=== PATIENT | female | born 1935 | race Caucasian/White ===

== ENCOUNTER 2022-08-22 10:11 | Outpatient (NON) | payer OTHER, SELFPAY ==
[2022-08-22 11:28] LABS: Alanine Aminotransferase 17 U/L (14-59); Albumin Level 3.2 g/dL (3.4-5.0); Alkaline Phosphatase 110 U/L (46-116); Anion Gap 12 mmol/L (8-16); Aspartate Amino Transferase 16 U/L (15-37); Bilirubin,Total 0.9 mg/dL (0.00-1.00); Blood Urea Nitrogen 18 mg/dL (7-18); Carbon Dioxide 26 mmol/L (21-32); Chloride 104 mmol/L (98-108); Cholesterol 161 mg/dL (0-200); Estimated Glomerular Filt Rate > 60; Glucose 82 mg/dL (70-99); HDL Direct 70 mg/dL (40-60); LDL Cholesterol Calculated 77 mg/dL (<130); Osmolality Calculated 294 mOsm/kg (285-295); Potassium 4.6 mmol/L (3.5-5.1); Sodium 142 mmol/L (136-145); Total Protein 6.9 g/dL (6.4-8.2); Triglycerides 71 mg/dL (0-150)
[2022-08-27 14:04] LABS: Vitamin D 25 Hydroxy 46 ng/mL (30-100)
== END 2022-08-22 10:12 | disposition home or self-care (01) ==
LOC: CHSLAB 10:14
PROVIDERS: Visit Provider Physician Assistant
DX: M81.0 Age-related osteoporosis without current pathological fracture (principal); E78.5 Hyperlipidemia, unspecified; R73.09 Other abnormal glucose
CPT/HCPCS: 80053; 80061; 82306; 83036

== ENCOUNTER 2022-09-20 01:37 | Emergency (ER) | payer OTHER, SELFPAY ==
--- NOTE | ~2022-09-20 | CT_ITS ---
Non-contrast CT scan of the Abdomen and Pelvis Clinical indication: Hematuria Technique: 2.5 mm axial scans were obtained through the abdomen and pelvis without intravenous or or al contrast. Dose reduction technique was used on this scan by utilizing automated exposure control a nd iterative reconstruction technique. The dose-length product (DLP) was 673.32 mGy-cm. Findings: Images through the lung bases reveal mild bibasilar pulmonary scarring or atelectatic murillo ge. There is no evidence of renal or ureteral calculi. The kidneys and the ureters are nondilated. The liver, spleen, pancreas, gallbladder, and adrenals appear normal. There are mild atherosclerotic calcifications of the aorta. There is no evidence of bowel obstruction. Normal appendix. Images through the pelvis were performed. There is no evidence of ascites or lymphadenopathy. There i s a 4.0 x 3.2 cm mildly hyperdense mass predominantly intraluminal arising from the posterior, right urinary bladder. No adnexal mass evident. Patient appears to be post hysterectomy. No ascites. Impression: 4.0 x 3.2 cm urinary bladder mass in the posterior, right side. This is suspicious for bladder carcin madie until proven otherwise. Reviewed, dictated and finalized at [facility]. Impression: 4.0 x 3.2 cm urinary bladder mass in the posterior, right side. This is suspici ous for bladder carcinoma until proven otherwise.
[2022-09-20 01:40] VITALS: BP 115/64; PULSE 75; RESP 20; TEMP 36.7; O2SAT 94
--- NOTE | 2022-09-20 01:58 | PC.NURSE ---
Pt taken to restroom for urine sample. Pt voided approximately 200 ml of urine with gustavo blood present. No clots noted. Urine obtained and sent to lab
[2022-09-20 02:05] LABS: Appearance Urine Clear (Clear); Bilirubin Urine Negative (Negative); Blood Urine 3+ (Negative); Color Urine Red (Yellow); Glucose Urine UA Negative (Negative); Ketones Urine Negative (Negative); Leukocyte Esterase Ur Trace LEU/UL (Negative); Nitrate Urine Negative (Negative); Protein Urine 3+ (Negative); Urobilinogen Urine 0.2 mg/dL (0.2-1.0); pH Urine 6.5 (5.0-8.0)
[2022-09-20 02:08] LABS: Add Urine Microscopic? YES; Bacteria Urine Trace /hpf; RBC Urine >75 /hpf (0-2); Squamous Epithelial Cell Urine None seen /hpf (Few)
[2022-09-20 03:03] VITALS: BP 116/62; PULSE 74; RESP 18; O2SAT 92
--- NOTE | 2022-09-20 03:49 | ED.GENADULT ---
HPI - General Adult General Chief complaint: Urogenital-Female Stated complaint: Urogenital History of Present Illness HPI narrative: 87yo woman half-way resident presents for new appearance of blood in the urine. No fevers, chills, pain, or urinary retention. Related Data Home Medications Medication Instructions Recorded Confirmed Centrum See Rx Instructions .Route .COMPLEX 09/20/22 09/20/22 Vasotec 5 mg PO DAILY 09/20/22 09/20/22 Vitamin D3 50 mcg PO DAILY 09/20/22 09/20/22 aspirin 81 mg PO DAILY 09/20/22 09/20/22 atorvastatin 40 mg PO DAILY 09/20/22 09/20/22 ergocalciferol (vitamin D2) 1.25 mg PO WEEKLY 09/20/22 09/20/22 escitalopram oxalate 10 mg tablet 10 mg PO DAILY 09/20/22 09/20/22 Allergies Allergy/AdvReac Type Severity Reaction Status Date / Time No Known Allergies Allergy Verified 09/20/22 01:43 Review of Systems Review of Systems: All systems reviewed & are unremarkable except as noted in HPI and below ENT: Denies dysphagia Cardiovascular: Cardiovascular: Denies chest pain Respiratory: Respiratory: Denies dyspnea Exam Const: General: healthy appearing and no acute distress Nutritional Appearance: well nourished Eyes: Conjunctivae: conjunctivae normal Resp: Effort & Inspection: normal respiratory effort and not labored Auscultation: clear to auscultation bilaterally Cardio: Rate: regular rate Rhythm: regular rhythm GI: Inspection: non-distended GI Palp: Yes Soft to palpation and No Tenderness to palpation present (GI) Skin: General skin exam: normal color, no jaundice and no pallor Neuro: General: patient oriented x3 and moves all extremities Course Vital Signs Vital signs: Vital Signs Temperature 36.7 C 09/20/22 01:40 Pulse Rate 75 09/20/22 01:40 Respiratory Rate 20 09/20/22 01:40 Blood Pressure 115/64 09/20/22 01:40 Pulse Oximetry 94 09/20/22 01:40 Oxygen Delivery Room Air 09/20/22 01:40 Temperature 36.7 C 09/20/22 01:40 Pulse Rate 51 L 09/20/22 04:04 Respiratory Rate 18 09/20/22 04:04 Blood Pressure 118/86 09/20/22 04:04 Pulse Oximetry 93 09/20/22 04:04 Oxygen Delivery Room Air 09/20/22 03:03 Medical Decision Making MDM Narrative Medical decision making narrative: gross hematuria DDx cystitis, kidney stone, bladder mass/malignancy. UA and CT to evaluate. Vital Signs Vital Signs: Vital Signs Temperature 36.7 C 09/20/22 01:40 Pulse Rate 75 09/20/22 01:40 Respiratory Rate 20 09/20/22 01:40 Blood Pressure 115/64 09/20/22 01:40 Pulse Oximetry 94 09/20/22 01:40 Oxygen Delivery Room Air 09/20/22 01:40 Temperature 36.7 C 09/20/22 01:40 Pulse Rate 51 L 09/20/22 04:04 Respiratory Rate 18 09/20/22 04:04 Blood Pressure 118/86 09/20/22 04:04 Pulse Oximetry 93 09/20/22 04:04 Oxygen Delivery Room Air 09/20/22 03:03 Lab Data Labs: Lab Results 09/20/22 Range/Units 01:57 Urine Color Red A (Yellow) Urine Appearance Clear (Clear) Urine pH 6.5 (5.0-8.0) Ur Specific [place] 1.020 (1.010-1.020) Urine Protein 3+ H (Negative) Urine Glucose (UA) Negative (Negative) Urine Ketones Negative (Negative) Ur Blood (Man) 3+ H (Negative) Urine Nitrate Negative (Negative) Urine Bilirubin Negative (Negative) Urine Urobilinogen 0.2 (0.2-1.0) mg/dL Leukocyte Esterase Rfl Trace H (Negative) ALEE/UL Urine RBC >75 H (0-2) /hpf Urine WBC 4-6 H (0-3) /hpf Ur Squamous Epith Cells None seen (Few) /hpf Urine Bacteria Trace (None) /hpf Discharge Plan Discharge Clinical Impression: Mass of urinary bladder, Gross hematuria Patient Disposition: Home, Self-Care Condition: Stable Additional Instructions: Your CT shows a mass in the bladder. This mass is most likely a cancer and the source of your bleeding. To find out for certain, you will need to be evaluated by a Urologist who can do further testing and a biopsy
[2022-09-20 04:04] VITALS: BP 118/86; PULSE 51; RESP 18; O2SAT 93
== END 2022-09-20 04:18 | disposition home or self-care (01) ==
PROVIDERS: Emergency Provider Emergency Medicine; PCP Internal Medicine
DX: N32.89 Other specified disorders of bladder (principal); R31.0 Gross hematuria; Z79.82 Long term (current) use of aspirin
CPT/HCPCS: 74176; 81001; 99284

== ENCOUNTER 2022-10-17 11:24 | Outpatient (CLI) | payer OTHER, SELFPAY ==
--- NOTE | ~2022-10-17 | XR_ITS ---
EXAMINATION: XR chest 2V DATE: 10/17/2022 12:04 INDICATION: Hypertension. Chronic obstructive pulmonary disease. TECHNIQUE: Frontal and lateral views of the chest were obtained. COMPARISON: Chest 2 views 06/20/2022, CT abdomen and pelvis 09/20/2022 FINDINGS: There is mild atelectasis versus scarring in left lower lung zone. No pleural effusion or p neumothorax. The heart size is normal. There is mild chronic anterior wedging of a midthoracic verteb ral body. IMPRESSION: 1. Mild atelectasis versus scarring in left lower lung zone. Reviewed, dictated and finalized at location A.
[2022-10-17 11:54] LABS: Basophils Absolute Auto 0.04 K/mm3 (0.00-0.10); Basophils Percent Auto 0.4 % (0.0-1.0); Eosinophils Absolute Auto 0.04 K/mm3 (0.02-0.50); Eosinophils Percent Auto 0.4 % (1.0-6.0); Hematocrit 37.8 % (35.0-42.0); Hemoglobin 11.7 g/dL (11.7-13.8); Immature Granulocyte Absolute 0.04 K/mm3 (0.00-0.00); Immature Granulocyte Percent A 0.4 % (0.0-0.0); Lymphocytes Absolute Auto 2.14 K/mm3 (1.10-4.50); Lymphocytes Percent Auto 21.6 % (18.0-42.0); Mean Corpuscular Hemoglobin 28.3 pg (27.0-31.0); Mean Corpuscular Volume 91.5 fL (78.0-102.0); Mean Platelet Volume 9.6 fl (9.2-11.8); Monocytes Absolute Auto 1.16 K/mm3 (0.10-0.90); Monocytes Percent Auto 11.7 % (2.0-11.0); Neutrophils Absolute Auto 6.5 K/mm3 (1.7-7.2); Neutrophils Percent Auto 65.5 % (50.0-70.0); Platelet Count Result 284 K/mm3 (150-420); Red Blood Count 4.13 M/mm3 (4.20-5.40); Red Cell Distribution Width 14.6 % (11.6-14.4); White Blood Count 9.9 K/mm3 (4.8-10.8)
[2022-10-17 11:56] LABS: Bilirubin Urine Negative (Negative); Blood Urine 3+ (Negative); Color Urine Light Yellow (Yellow); Glucose Urine UA Negative (Negative); Ketones Urine Negative (Negative); Leukocyte Esterase Ur 2+ LEU/UL (Negative); Nitrate Urine Negative (Negative); Protein Urine Trace (Negative); Urobilinogen Urine 0.2 mg/dL (0.2-1.0)
[2022-10-17 12:13] LABS: Add Urine Microscopic? YES; Appearance Urine Cloudy (Clear); WBC Urine 16-20 /hpf (0-3)
[2022-10-17 12:14] LABS: Bacteria Urine 2+ /hpf; Squamous Epithelial Cell Urine Few /hpf (Few)
[2022-10-17 12:52] LABS: Albumin Level 3.2 g/dL (3.4-5.0); Alkaline Phosphatase 105 U/L (46-116); Anion Gap 9 mmol/L (8-16); Bilirubin,Total 0.7 mg/dL (0.00-1.00); Blood Urea Nitrogen 22 mg/dL (7-18); Calcium 9.1 mg/dL (8.5-10.1); Carbon Dioxide 29 mmol/L (21-32); Chloride 103 mmol/L (98-108); Estimated Glomerular Filt Rate 56; Glucose 84 mg/dL (70-99); Osmolality Calculated 294 mOsm/kg (285-295); Potassium 4.1 mmol/L (3.5-5.1); Sodium 141 mmol/L (136-145); Total Protein 7.2 g/dL (6.4-8.2)
[2022-10-17 13:11] LABS: Alanine Aminotransferase 9 U/L (14-59); Aspartate Amino Transferase 10 U/L (15-37)
== END 2022-10-17 11:25 | disposition home or self-care (01) ==
PROVIDERS: PCP Internal Medicine; Visit Provider Internal Medicine
DX: Z01.818 Encounter for other preprocedural examination (principal); I10 Essential (primary) hypertension; J44.9 Chronic obstructive pulmonary disease, unspecified; R82.90 Unspecified abnormal findings in urine
CPT/HCPCS: 36415; 71046; 80053; 81001; 85025; 87086; 87088

== ENCOUNTER 2022-12-25 10:00 | Observation (INO) | payer OTHER, SELFPAY ==
[2022-12-25] VITALS (13 sets, daily range): BP systolic 128–144; BP diastolic 62–85; PULSE 67–92; RESP 16–18; TEMP 36.2–36.7; O2SAT 73–98; BMI 28.4
--- NOTE | ~2022-12-25 | XR_ITS ---
XR thoracic spine 3V 12/25/2022 11:23 Indication: Status post fall. Back pain. Procedure: 4 views thoracic spine Comparison: No prior studies for comparison. Findings: There is scoliosis. Osteopenia. Moderate thoracic spondylosis. No acute fracture or traumat ic malalignment. Mild wedge shaped appearance to T7 and T8 which appears chronic. Marginal osteophyte s. No paraspinal soft tissue abnormality. Central venous catheter tip in the SVC. Impression: 1: No acute abnormality of the thoracic spine. 2: Moderate thoracic spondylosis with scoliosis. Reviewed, dictated and finalized at location A. Impression: 1: No acute abnormality of the thoracic spine. 2: Moderate thoracic spondylosis with scoliosis.
--- NOTE | ~2022-12-25 | XR_ITS ---
XR forearm LT 2V, XR wrist LT w scaphoid 12/25/2022 11:24 (accession [id number]), 12/25/2022 11:23 (accession [id number]) Indication: Left arm pain after fall Procedure: 2 views left forearm and 5 views left wrist including scaphoid view Comparison: No prior studies for comparison. Findings: Osteopenia. Healed fifth metacarpal neck fracture. 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 No acute fracture or traumatic malalignment. Impression: 1: No acute fracture. Reviewed, dictated and finalized at location A. Impression: 1: No acute fracture. Impression: 1: No acute fracture.
--- NOTE | ~2022-12-25 | XR_ITS ---
XR lumbar spine 2-3V 12/25/2022 11:22 Indication: Back pain Procedure: Previews lumbar spine Comparison: No prior studies for comparison. Findings: There is scoliosis of the thoracic and lumbar spine. There is disc narrowing at all lumbar levels. There is degenerative retrolisthesis at L2-3 and L3-4. There is multilevel facet hypertrophy. No fracture or traumatic malalignment. Pedicles intact. Sacral foramen are symmetric. Impression: 1: No acute fracture. 2: Severe lumbar spondylosis with scoliosis. Reviewed, dictated and finalized at location A. Impression: 1: No acute fracture. 2: Severe lumbar spondylosis with scoliosis.
--- NOTE | 2022-12-25 10:27 | ECG_ITS ---
Measurements Intervals Natalia Rate: 84 P: 49 IL: 147 QRS: 7 QRSD: 78 T: 35 QT: 361 QTc: 428 Interpretive Statements SINUS RHYTHM WITH OCCASIONAL SUPRAVENTRICULAR PREMATURE COMPLEXES LOW QRS VOLTAGE OTHERWISE WITHIN NORMAL LIMITS NO PREVIOUS ECG AVAILABLE FOR COMPARISON Electronically Signed On 12-26-2022 7:11:21 CDT by Roberto Humphries M.D.
--- NOTE | 2022-12-25 10:29 | ED.GENADULT ---
HPI - General Adult General Chief complaint: Back Pain/Injury Stated complaint: fall; back pain History of Present Illness HPI narrative: Nicky is an 87F with a PMH of bladder cancer, HLD, HTN that presented to the ED with back pain after a fall. She was leaning over a few hours ago when she stood up, became lightheaded and fell back. She hit her left wrist, elbow and mid back and now has pain in her mid back. She did not hit her head or neck at all and did not lose consciousness. No numbness, tingling, weakness/paralysis in the lower extremities or loss of bowel/bladder control. Related Data Home Medications Medication Instructions Recorded Confirmed Centrum See Rx Instructions .Route .COMPLEX 09/20/22 12/25/22 Vasotec 5 mg PO DAILY 09/20/22 12/25/22 Vitamin D3 50 mcg PO DAILY 09/20/22 12/25/22 aspirin 81 mg PO DAILY 09/20/22 12/25/22 atorvastatin 40 mg PO DAILY 09/20/22 12/25/22 ergocalciferol (vitamin D2) 1.25 mg PO WEEKLY 09/20/22 12/25/22 escitalopram oxalate 10 mg tablet 10 mg PO DAILY 09/20/22 12/25/22 Allergies Allergy/AdvReac Type Severity Reaction Status Date / Time No Known Allergies Allergy Verified 09/20/22 01:43 Review of Systems Review of Systems: All systems reviewed & are unremarkable except as noted in HPI and below PMFSH Past Medical History Medical History (Updated 12/25/22 @ 16:05 by Nena Roche APRN) Anemia Ankle fracture, left Bladder cancer Fixation hardware in foot HLD (hyperlipidemia) Osteoporosis Surgical History Surgical History H/O: hysterectomy Social History Social History (Updated 12/25/22 @ 15:51 by Nena Roche APRN) Social History: Lives at the [facility] in [place]. She reports that she started smoking after her Divorce. She says that she didn't smoke a lot, less than 1/2 ppd and she did not inhale. Smoking packs per day: 0.5 Smoking cigarettes per day: 10.0 Years smoked: 5 Smoking pack-years: 2.50 Smoking status: Former smoker Tobacco type: cigarettes Alcohol intake: former Substance use: never Lack of Transportation: YES Lack of Food: Never True Current Housing: I Have Housing Concerned About Future Housing: No Difficulty Paying Gas/Electric Bills: No Difficulty Paying for Meds: No Currently Unemployed: No Living arrangements: assisted living Additional living arrangements comments: Lives at the [facility]. Her son, Parvez Coker is her emergency contact. Occupation/Education: retired Gender identity (if verbalized by the patient): Female Agree to blood products: Yes Exam Const: General: healthy appearing and no acute distress Nutritional Appearance: well nourished Orientation/consciousness: patient oriented x3 Limitations: no limitations HENMT: Head: normal to inspection Ears: external ears normal Face/Nose/Sinus: Normal external nose present Eyes: Conjunctivae: conjunctivae normal Pupils: Equal, round and reactive pupils present EOM: EOMs intact bilaterally Neck: Neck: normal visual inspection Chest: Chest palpation & inspection: normal inspection of the chest Resp: Effort & Inspection: normal respiratory effort Auscultation: clear to auscultation bilaterally Cardio: Rate: regular rate Rhythm: regular rhythm GI: Inspection: non-distended GI Palp: Yes Soft to palpation, No Tenderness to palpation present (GI) and No Guarding due to palpation present (GI) : General: Yes bladder normal to palpation Back/Spine/Pelvis: Back: no CVA tenderness Skin: General skin exam: normal color Rashes: no rashes Neuro: General: patient oriented x3 and moves all extremities Cranial nerves: Yes Nystagmus not present Speech: normal speech Extrem: Other: Bruising on lateral left upper extremity, just proximal to the wrist Psych: Mental Status: mental status grossly normal Course Course Emergency Course: Ordered labs, CXR and EKG EKG
[2022-12-25 11:38] LABS: Basophils Absolute Auto 0.07 K/mm3 (0.00-0.10); Basophils Percent Auto 0.5 % (0.0-1.0); Eosinophils Absolute Auto 0.01 K/mm3 (0.02-0.50); Eosinophils Percent Auto 0.1 % (1.0-6.0); Hematocrit 23.5 % (35.0-42.0); Hemoglobin 7.4 g/dL (11.7-13.8); Immature Granulocyte Absolute 0.15 K/mm3 (0.00-0.00); Immature Granulocyte Percent A 1.1 % (0.0-0.0); Lymphocytes Percent Auto 7.7 % (18.0-42.0); Mean Corpuscular HGB Conc 31.5 g/dL (32.0-36.0); Mean Corpuscular Hemoglobin 28.2 pg (27.0-31.0); Mean Corpuscular Volume 89.7 fL (78.0-102.0); Mean Platelet Volume 9.9 fl (9.2-11.8); Monocytes Absolute Auto 1.89 K/mm3 (0.10-0.90); Monocytes Percent Auto 13.3 % (2.0-11.0); Neutrophils Percent Auto 77.3 % (50.0-70.0); Platelet Count Result 262 K/mm3 (150-420); Red Blood Count 2.62 M/mm3 (4.20-5.40); Red Cell Distribution Width 18.4 % (11.6-14.4); White Blood Count 14.2 K/mm3 (4.8-10.8)
[2022-12-25 11:53] LABS: Alanine Aminotransferase 10 U/L (14-59); Albumin Level 2.6 g/dL (3.4-5.0); Alkaline Phosphatase 112 U/L (46-116); Anion Gap 9 mmol/L (8-16); Aspartate Amino Transferase 16 U/L (15-37); Bilirubin,Total 0.8 mg/dL (0.00-1.00); Blood Urea Nitrogen 21 mg/dL (7-18); Calcium 8.8 mg/dL (8.5-10.1); Carbon Dioxide 30 mmol/L (21-32); Chloride 99 mmol/L (98-108); Estimated CRCL calculation 18 ml/min; Estimated Glomerular Filt Rate 29; Glucose 106 mg/dL (70-99); Magnesium 1.3 mg/dL (1.8-2.4); Osmolality Calculated 289 mOsm/kg (285-295); Potassium 3.8 mmol/L (3.5-5.1); Sodium 138 mmol/L (136-145); Total Protein 6.6 g/dL (6.4-8.2)
[2022-12-25] MEDS: MAGNESIUM SULF 2 GM/WATER 50ML 2 GM/50 ML BAG IVPB (12:10)
--- NOTE | 2022-12-25 14:10 | ADMGEN ---
This patient, Nicky Coker, was admitted to 2nd Floor Room 207-1. Patient/family oriented to hospital policies and general routines including ID bracelet, bed and alarms, visiting hours, pain management, procedures, bathroom and other care routines, personal items, smoking policy, room service/diet, and visiting hours. Information on how to activate the Rapid Response Team has been discussed. Patient/Family are encouraged to report perceived risks to care and to ask questions if they do not understand what they are told or what they should do.
--- NOTE | 2022-12-25 15:40 | PM.IMHP ---
H&P: HPI History of Present Illness Date/Time: 12/25/22 15:40 Chief Complaint: 12/25 Narrative: This is a very pleasant 87 year old female with a PMH of bladder cancer followed by Dr Liao, osteoporosis, HLD, and depression. She presented to [place] ED by car after falling at her assisted living ([place]). She says she was getting some cereal out of her cabinet when she became dizzy, falling back wards hitting her back. She did not hit her head and she denies LOC. Prior to the fall she does not recall chest pain, fluttering in her chest, or shortness of breath. She denies headache, chest pain, sob, n/v/d, or constipation. Her back is sore from falling and she hit her left hand. She has some ecchymosis to her bilateral upper forearms. In the ED her hemoglobin was found to be 7.4 g/dl. Dr Keita contacted the patient's agronomy internship physician for her bladder cancer who recommended giving her a unit of blood and observing her overnight. She has been accepted as an observation patient for this transfusion. She was also found to have a leukocytosis of 14. Considering her age and presentation of dizziness I am inclined to obtain a U/A and start Rocephin as this dizziness may be from a urinary tract infection. Review of Systems Review of Systems: All systems reviewed & are unremarkable except as noted in HPI and below PMFSH Past Medical History Medical History (Updated 12/25/22 @ 16:05 by Nena Roche APRN) Anemia Ankle fracture, left Bladder cancer Fixation hardware in foot HLD (hyperlipidemia) Osteoporosis Surgical History Surgical History H/O: hysterectomy Social History Social History (Updated 12/25/22 @ 15:51 by Nena Roche APRN) Social History: Lives at the [facility] here in [place]. She reports that she started smoking after her Divorce. She says that she didn't smoke a lot, less than 1/2 ppd and she did not inhale. Smoking packs per day: 0.5 Smoking cigarettes per day: 10.0 Years smoked: 5 Smoking pack-years: 2.50 Smoking status: Former smoker Tobacco type: cigarettes Alcohol intake: former Substance use: never Lack of Transportation: YES Lack of Food: Never True Current Housing: I Have Housing Concerned About Future Housing: No Difficulty Paying Gas/Electric Bills: No Difficulty Paying for Meds: No Currently Unemployed: No Living arrangements: assisted living Additional living arrangements comments: Lives at the [facility]. Her son, Parvez Coker is her emergency contact. Occupation/Education: retired Gender identity (if verbalized by the patient): Female Agree to blood products: Yes Meds Home Medications and Allergies Home Medications Medication Instructions Recorded Confirmed Type Centrum See Rx Instructions .Route .COMPLEX 09/20/22 12/25/22 History Vasotec 5 mg PO DAILY 09/20/22 12/25/22 History Vitamin D3 50 mcg PO DAILY 09/20/22 12/25/22 History aspirin 81 mg PO DAILY 09/20/22 12/25/22 History atorvastatin 40 mg PO DAILY 09/20/22 12/25/22 History ergocalciferol (vitamin D2) 1.25 mg PO WEEKLY 09/20/22 12/25/22 History escitalopram oxalate 10 mg tablet 10 mg PO DAILY 09/20/22 12/25/22 History Allergies Allergy/AdvReac Type Severity Reaction Status Date / Time No Known Allergies Allergy Verified 09/20/22 01:43 Vital Signs Vital Signs - 24 hr 12/25/22 10:00 12/25/22 11:35 12/25/22 12:11 Temperature 98.1 F 97.8 F Pulse Rate 92 88 72 Respiratory Rate 18 18 18 Blood Pressure 144/77 H 140/77 128/70 Pulse Oximetry 97 98 96 Oxygen Delivery Room Air Room Air Room Air 12/25/22 14:00 Temperature 98 F Pulse Rate 72 Respiratory Rate 16 Blood Pressure 128/72 Pulse Oximetry 98 Oxygen Delivery Room Air Exam Narrative: General: elderly, frail, appears stated age. HEENT: normocephalic, atraumatic. Mucous membranes moist. EOMI, PERRLA, bilateral sclera anicteric, no conjunctival injection.
[2022-12-25] MEDS: SODIUM CHLORIDE 0.9% IV 250 ML 30 ML IV CONT (16:15)
[2022-12-25 20:04] LABS: Bilirubin Urine Negative (Negative); Blood Urine 3+ (Negative); Color Urine Light Yellow (Yellow); Glucose Urine UA Negative (Negative); Ketones Urine Negative (Negative); Leukocyte Esterase Ur 1+ (Negative); Nitrate Urine Negative (Negative); Protein Urine 1+ (Negative); Specific Grav Ur 1.015 (1.010-1.020); Urobilinogen Urine 0.2 mg/dL (0.2-1.0)
[2022-12-25 20:19] LABS: Add Urine Microscopic? YES; Appearance Urine Cloudy (Clear); RBC Urine 51-75 /hpf (0-2); Squamous Epithelial Cell Urine Few /hpf (Few); WBC Clumps Urine Present /hpf
[2022-12-25] MEDS: SODIUM CHLORIDE 0.9% IV 1,000 ML 75 ML IV CONT (20:19)
[2022-12-25 20:20] LABS: Amorphous Sediment Urine Few; Bacteria Urine 2+ /hpf; Renal Epithelial Cells Urine Few /hpf
[2022-12-25 21:00] LABS: Hematocrit 23.4 % (35.0-42.0); Hemoglobin 7.8 g/dL (11.7-13.8)
[2022-12-26 04:00] VITALS: PULSE 72
[2022-12-26 05:29] LABS: Basophils Absolute Auto 0.03 K/mm3 (0.00-0.10); Basophils Percent Auto 0.2 % (0.0-1.0); Eosinophils Absolute Auto 0.03 K/mm3 (0.02-0.50); Eosinophils Percent Auto 0.2 % (1.0-6.0); Hematocrit 25.1 % (35.0-42.0); Hemoglobin 8.2 g/dL (11.7-13.8); Immature Granulocyte Absolute 0.14 K/mm3 (0.00-0.00); Immature Granulocyte Percent A 1.1 % (0.0-0.0); Lymphocytes Absolute Auto 1.02 K/mm3 (1.10-4.50); Lymphocytes Percent Auto 8.1 % (18.0-42.0); Mean Corpuscular HGB Conc 32.7 g/dL (32.0-36.0); Mean Corpuscular Hemoglobin 28.9 pg (27.0-31.0); Mean Corpuscular Volume 88.4 fL (78.0-102.0); Mean Platelet Volume 9.8 fl (9.2-11.8); Monocytes Absolute Auto 1.78 K/mm3 (0.10-0.90); Monocytes Percent Auto 14.1 % (2.0-11.0); Neutrophils Absolute Auto 9.7 K/mm3 (1.7-7.2); Neutrophils Percent Auto 76.3 % (50.0-70.0); Platelet Count Result 220 K/mm3 (150-420); Red Blood Count 2.84 M/mm3 (4.20-5.40); Red Cell Distribution Width 17.5 % (11.6-14.4); White Blood Count 12.7 K/mm3 (4.8-10.8)
[2022-12-26 05:43] LABS: Alanine Aminotransferase 7 U/L (14-59); Albumin Level 2.2 g/dL (3.4-5.0); Alkaline Phosphatase 95 U/L (46-116); Anion Gap 7 mmol/L (8-16); Aspartate Amino Transferase 14 U/L (15-37); Bilirubin,Total 0.7 mg/dL (0.00-1.00); Blood Urea Nitrogen 22 mg/dL (7-18); Calcium 8.7 mg/dL (8.5-10.1); Carbon Dioxide 31 mmol/L (21-32); Chloride 102 mmol/L (98-108); Estimated CRCL calculation 21 ml/min; Estimated Glomerular Filt Rate 34; Glucose 92 mg/dL (70-99); Osmolality Calculated 293 mOsm/kg (285-295); Potassium 3.7 mmol/L (3.5-5.1); Sodium 140 mmol/L (136-145); Total Protein 5.8 g/dL (6.4-8.2)
[2022-12-26 06:27] LABS: Folic Acid 13.9 ng/mL (8.6->20); Iron 39 ug/dL (50-170); Percent Iron Saturation 18 % (12-57)
[2022-12-26 06:42] LABS: Vitamin B12 > 2000 pg/mL (193-986)
--- NOTE | 2022-12-26 07:05 | PM.IMPN ---
Progress Note: A&P Assessment and Plan (1) UTI (urinary tract infection): Code(s): N39.0 - Urinary tract infection, site not specified Status: Acute Assessment and Plan: WBC 14 afebrile and blood pressures are stable given her age, dizziness, and fall I am inclined to obtain a U/A and start Rocephin for concerns for a UTI. If U/A positive will reflex to culture U/A was + for UTI. Urine culture pending (2) Fall: Code(s): W19.XXXA - Unspecified fall, initial encounter Status: Acute Assessment and Plan: Fell at her assisted living No acute fractures were found on imaging Ecchymosis to upper arms PT/OT to see her tomorrow (3) Anemia: Code(s): D64.9 - Anemia, unspecified Status: Acute Assessment and Plan: Hgb 7.4 in the ED. In October of this year, was 11.7 ED physician spoke with her bladder cancer specialist and they recommended transfusing 1 unit of blood. Repeat H/H in the am Hgb is 8.2 after 1 unit pRBC Add on anemia labs-Fe slightly decreased, normal % saturation. Can given daily iron. No signs of bleeding and only on ASA 81 mg daily (4) LITZY (acute kidney injury): Code(s): N17.9 - Acute kidney failure, unspecified Status: Acute Assessment and Plan: Cr 1.68 on admission, last reading in October was 0.94. NS at 75 ml per hour Cr 1.44 today 12/26 (5) Bladder cancer: Code(s): C67.9 - Malignant neoplasm of bladder, unspecified Status: Acute Assessment and Plan: Follows with Dr Liao. She was receiving indwelling bladder chemotherapy treatments but could not tolerate it, therefore she transitioned to chemotherpay. Right chest port-a-cath (6) Osteoporosis: Code(s): M81.0 - Age-related osteoporosis without current pathological fracture Status: Acute Assessment and Plan: Stable on ergocalciferol and vitamin D3 (7) HLD (hyperlipidemia): Code(s): E78.5 - Hyperlipidemia, unspecified Status: Acute Assessment and Plan: Stable on atorvastatin Subjective Date/time seen: 12/26/22 07:05 Interval history: This is a very pleasant 87 year old female with a PMH of bladder cancer followed by Dr Liao, osteoporosis, HLD, and depression. She presented to [facility] ED by car after falling at her assisted living ([place]). She says she was getting some cereal out of her cabinet when she became dizzy, falling back wards hitting her back. She did not hit her head and she denies LOC. Prior to the fall she does not recall chest pain, fluttering in her chest, or shortness of breath. She denies headache, chest pain, sob, n/v/d, or constipation. Her back is sore from falling and she hit her left hand. She has some ecchymosis to her bilateral upper forearms. In the ED her hemoglobin was found to be 7.4 g/dl. Dr Keita contacted the patient's service advocate contact physician for her bladder cancer who recommended giving her a unit of blood and observing her overnight. She has been accepted as an observation patient for this transfusion. She was also found to have a leukocytosis of 14. Considering her age and presentation of dizziness I am inclined to obtain a U/A and start Rocephin as this dizziness may be from a urinary tract infection. 12/26- Miss Saunders is doing well today. She tolerated her unit of blood yesterday. Hemoglobin responded to 8.2 from 7.4. Also being treated for a UTI. Awaiting urine culture results with sensitivities prior to d/c. I spoke with her about the plan of care and she agreeable. Review of Systems Review of Systems: All systems reviewed & are unremarkable except as noted in HPI and below Exam Narrative: General: elderly, frail, appears stated age. HEENT: normocephalic, atraumatic. Mucous membranes moist. EOMI, PERRLA, bilateral sclera anicteric, no conjunctival injection. Neck supple without JVD, lymphadenopathy, or bruit. Respiratory: clear to auscultation bilaterally.
[2022-12-26 08:00] VITALS: BP 140/68; PULSE 76; PULSE 78; RESP 14; TEMP 36.5; O2SAT 96
[2022-12-26 08:24] LABS: Magnesium 1.8 mg/dL (1.8-2.4)
[2022-12-26] MEDS: MAGNESIUM SULF 2 GM/WATER 50ML 2 GM/50 ML BAG IVPB (10:06)
[2022-12-26] MEDS: ENALAPRIL MALEATE 5 MG TABLET PO (10:06)
[2022-12-26] MEDS: ASPIRIN 81 MG CHEWABLE TABLET PO (10:07)
[2022-12-26] MEDS: ESCITALOPRAM OXALATE 10 MG TABLET PO (10:07)
[2022-12-26] MEDS: CHOLECALCIFEROL 1,000 UNITS TABLET 2000 UNITS PO (10:07)
[2022-12-26] MEDS: ATORVASTATIN 40 MG TABLET PO (10:07)
[2022-12-26] MEDS: FERROUS SULFATE 325 MG TABLET DR PO (10:07)
[2022-12-26 12:00] VITALS: PULSE 108
[2022-12-26 16:00] VITALS: BP 135/80; PULSE 84; RESP 16; TEMP 36.2
[2022-12-26 20:00] VITALS: BP 118/55; PULSE 75; PULSE 87; RESP 16; TEMP 36.4; O2SAT 95
[2022-12-26] MEDS: SODIUM CHLORIDE 0.9% IV 1,000 ML 75 ML IV CONT (21:00)
[2022-12-27] VITALS: BP 158/86; PULSE 69; PULSE 91; RESP 16; TEMP 36.7; O2SAT 91
[2022-12-27 04:00] VITALS: PULSE 106
--- NOTE | 2022-12-27 07:17 | PM.IMPN ---
Progress Note: A&P Assessment and Plan (1) UTI (urinary tract infection): Code(s): N39.0 - Urinary tract infection, site not specified Status: Acute Assessment and Plan: WBC 14 afebrile and blood pressures are stable given her age, dizziness, and fall I am inclined to obtain a U/A and start Rocephin for concerns for a UTI. If U/A positive will reflex to culture U/A was + for UTI. Urine culture pending (2) Fall: Code(s): W19.XXXA - Unspecified fall, initial encounter Status: Acute Assessment and Plan: Fell at her assisted living No acute fractures were found on imaging Ecchymosis to upper arms PT/OT to see her tomorrow (3) Anemia: Code(s): D64.9 - Anemia, unspecified Status: Acute Assessment and Plan: Hgb 7.4 in the ED. In October of this year, was 11.7 ED physician spoke with her bladder cancer specialist and they recommended transfusing 1 unit of blood. Repeat H/H in the am Hgb is 8.2 after 1 unit pRBC Add on anemia labs-Fe slightly decreased, normal % saturation. Can given daily iron. No signs of bleeding and only on ASA 81 mg daily (4) LITZY (acute kidney injury): Code(s): N17.9 - Acute kidney failure, unspecified Status: Acute Assessment and Plan: Cr 1.68 on admission, last reading in October was 0.94. NS at 75 ml per hour Cr 1.44 today 12/26 (5) Bladder cancer: Code(s): C67.9 - Malignant neoplasm of bladder, unspecified Status: Acute Assessment and Plan: Follows with Dr Liao. She was receiving indwelling bladder chemotherapy treatments but could not tolerate it, therefore she transitioned to chemotherpay. Right chest port-a-cath (6) Osteoporosis: Code(s): M81.0 - Age-related osteoporosis without current pathological fracture Status: Acute Assessment and Plan: Stable on ergocalciferol and vitamin D3 (7) HLD (hyperlipidemia): Code(s): E78.5 - Hyperlipidemia, unspecified Status: Acute Assessment and Plan: Stable on atorvastatin Subjective Date/time seen: 12/27/22 07:17 Interval history: This is a very pleasant 87 year old female with a PMH of bladder cancer followed by Dr Liao, osteoporosis, HLD, and depression. She presented to [place] ED by car after falling at her assisted living ([facility]). She says she was getting some cereal out of her cabinet when she became dizzy, falling back wards hitting her back. She did not hit her head and she denies LOC. Prior to the fall she does not recall chest pain, fluttering in her chest, or shortness of breath. She denies headache, chest pain, sob, n/v/d, or constipation. Her back is sore from falling and she hit her left hand. She has some ecchymosis to her bilateral upper forearms. In the ED her hemoglobin was found to be 7.4 g/dl. Dr Keita contacted the patient's occupational therapy supervisor physician for her bladder cancer who recommended giving her a unit of blood and observing her overnight. She has been accepted as an observation patient for this transfusion. She was also found to have a leukocytosis of 14. Considering her age and presentation of dizziness I am inclined to obtain a U/A and start Rocephin as this dizziness may be from a urinary tract infection. 12/26- Miss Saunders is doing well today. She tolerated her unit of blood yesterday. Hemoglobin responded to 8.2 from 7.4. Also being treated for a UTI. Awaiting urine culture results with sensitivities prior to d/c. I spoke with her about the plan of care and she agreeable. Review of Systems Review of Systems: All systems reviewed & are unremarkable except as noted in HPI and below Exam Narrative: General: elderly, frail, appears stated age. HEENT: normocephalic, atraumatic. Mucous membranes moist. EOMI, PERRLA, bilateral sclera anicteric, no conjunctival injection. Neck supple without JVD, lymphadenopathy, or bruit. Respiratory: clear to auscultation bilaterally.
[2022-12-27 08:00] VITALS: BP 130/74; PULSE 74; PULSE 76; RESP 18; TEMP 36.6; O2SAT 95
[2022-12-27 08:28] LABS: Basophils Absolute Auto 0.04 K/mm3 (0.00-0.10); Basophils Percent Auto 0.3 % (0.0-1.0); Eosinophils Absolute Auto 0.01 K/mm3 (0.02-0.50); Eosinophils Percent Auto 0.1 % (1.0-6.0); Hematocrit 26.3 % (35.0-42.0); Hemoglobin 8.3 g/dL (11.7-13.8); Immature Granulocyte Absolute 0.11 K/mm3 (0.00-0.00); Immature Granulocyte Percent A 0.9 % (0.0-0.0); Lymphocytes Absolute Auto 1.17 K/mm3 (1.10-4.50); Lymphocytes Percent Auto 9.2 % (18.0-42.0); Mean Corpuscular HGB Conc 31.6 g/dL (32.0-36.0); Mean Corpuscular Hemoglobin 28.3 pg (27.0-31.0); Mean Corpuscular Volume 89.8 fL (78.0-102.0); Mean Platelet Volume 9.6 fl (9.2-11.8); Monocytes Percent Auto 12.6 % (2.0-11.0); Neutrophils Absolute Auto 9.8 K/mm3 (1.7-7.2); Neutrophils Percent Auto 76.9 % (50.0-70.0); Platelet Count Result 257 K/mm3 (150-420); Red Blood Count 2.93 M/mm3 (4.20-5.40); Red Cell Distribution Width 17.8 % (11.6-14.4); White Blood Count 12.7 K/mm3 (4.8-10.8)
[2022-12-27 08:40] LABS: Alanine Aminotransferase 7 U/L (14-59); Albumin Level 2.2 g/dL (3.4-5.0); Alkaline Phosphatase 98 U/L (46-116); Anion Gap 11 mmol/L (8-16); Aspartate Amino Transferase 13 U/L (15-37); Bilirubin,Total 0.6 mg/dL (0.00-1.00); Blood Urea Nitrogen 20 mg/dL (7-18); Calcium 8.8 mg/dL (8.5-10.1); Carbon Dioxide 28 mmol/L (21-32); Chloride 102 mmol/L (98-108); Estimated CRCL calculation 22 ml/min; Estimated Glomerular Filt Rate 35; Glucose 91 mg/dL (70-99); Osmolality Calculated 294 mOsm/kg (285-295); Potassium 3.7 mmol/L (3.5-5.1); Sodium 141 mmol/L (136-145); Total Protein 6.1 g/dL (6.4-8.2)
[2022-12-27] MEDS: CHOLECALCIFEROL 1,000 UNITS TABLET 2000 UNITS PO (09:29)
[2022-12-27] MEDS: ENALAPRIL MALEATE 5 MG TABLET PO (09:29)
[2022-12-27] MEDS: ATORVASTATIN 40 MG TABLET PO (09:30)
[2022-12-27] MEDS: FERROUS SULFATE 325 MG TABLET DR PO (09:30)
[2022-12-27] MEDS: AMOXICILLIN/CLAVULANATE K 875-125 MG TAB 1 TABLET PO (09:30)
[2022-12-27] MEDS: ASPIRIN 81 MG CHEWABLE TABLET PO (09:30)
[2022-12-27] MEDS: ESCITALOPRAM OXALATE 10 MG TABLET PO (09:30)
--- NOTE | 2022-12-27 09:53 | PM.DS ---
DS: Admitting Diagnosis Discharge Date 12/27 Admitting Diagnosis fall, dizziness DS: Discharge Diagnosis Discharge Diagnosis (1) UTI (urinary tract infection): Code(s): N39.0 - Urinary tract infection, site not specified Status: Acute Assessment and Plan: WBC 14 afebrile and blood pressures are stable given her age, dizziness, and fall I am inclined to obtain a U/A and start Rocephin for concerns for a UTI. If U/A positive will reflex to culture U/A was + for UTI. Urine culture pending (2) Fall: Code(s): W19.XXXA - Unspecified fall, initial encounter Status: Acute Assessment and Plan: Fell at her assisted living No acute fractures were found on imaging Ecchymosis to upper arms PT/OT to see her tomorrow (3) Anemia: Code(s): D64.9 - Anemia, unspecified Status: Acute Assessment and Plan: Hgb 7.4 in the ED. In October of this year, was 11.7 ED physician spoke with her bladder cancer specialist and they recommended transfusing 1 unit of blood. Repeat H/H in the am Hgb is 8.2 after 1 unit pRBC Add on anemia labs-Fe slightly decreased, normal % saturation. Can given daily iron. No signs of bleeding and only on ASA 81 mg daily (4) LITZY (acute kidney injury): Code(s): N17.9 - Acute kidney failure, unspecified Status: Acute Assessment and Plan: Cr 1.68 on admission, last reading in October was 0.94. NS at 75 ml per hour Cr 1.44 today 12/26 (5) Bladder cancer: Code(s): C67.9 - Malignant neoplasm of bladder, unspecified Status: Acute Assessment and Plan: Follows with Dr Liao. She was receiving indwelling bladder chemotherapy treatments but could not tolerate it, therefore she transitioned to chemotherpay. Right chest port-a-cath (6) Osteoporosis: Code(s): M81.0 - Age-related osteoporosis without current pathological fracture Status: Acute Assessment and Plan: Stable on ergocalciferol and vitamin D3 (7) HLD (hyperlipidemia): Code(s): E78.5 - Hyperlipidemia, unspecified Status: Acute Assessment and Plan: Stable on atorvastatin Plan Cr is still elevated but downtrending. Will give her a 500 ml NS bolus and continue IV fluids until she discharges this afternoon. I was going to keep her another day for IV hydration however, her son really wants her to see her hash slinger tomorrow at her normal appointment in [place]. Since she has follow up I feel comfortable letting her go. I will have a BMP ordered for her to complete tomorrow prior to her appointment. DS: Summary Hospital Course Hospital Course: This is a very pleasant 87 year old female with a PMH of bladder cancer followed by Dr Liao, osteoporosis, HLD, and depression. She presented to [place] ED by car after falling at her assisted living ([facility]). She says she was getting some cereal out of her cabinet when she became dizzy, falling back wards hitting her back. She did not hit her head and she denies LOC. Prior to the fall she does not recall chest pain, fluttering in her chest, or shortness of breath. She denies headache, chest pain, sob, n/v/d, or constipation. Her back is sore from falling and she hit her left hand. She has some ecchymosis to her bilateral upper forearms. In the ED her hemoglobin was found to be 7.4 g/dl. Dr Keita contacted the patient's almond cutting machine tender physician for her bladder cancer who recommended giving her a unit of blood and observing her overnight. She has been accepted as an observation patient for this transfusion. She was also found to have a leukocytosis of 14. Considering her age and presentation of dizziness I am inclined to obtain a U/A and start Rocephin as this dizziness may be from a urinary tract infection. 12/26- Miss Saunders is doing well today. She tolerated her unit of blood yesterday. Hemoglobin responded to 8.2 from 7.4. Also being treated for a UTI. Awaiting urine culture results with [facility]
[2022-12-27] MEDS: SODIUM CHLORIDE 0.9% IV 1,000 ML 75 ML IV CONT (09:58)
[2022-12-27] MEDS: SODIUM CHLORIDE 0.9% IV 500 ML IV CONT (10:05)
[2022-12-27 12:00] VITALS: PULSE 88
--- NOTE | 2022-12-27 16:34 | PC.NURSE ---
1530 pt dressed and ready for dc. instructions went over with patient and son. aware meds are at [facility]. aware that home health from residential is set up and alex call prior to coming out. both son and patient verbalize an understanding. dc per wc to son's car.
--- NOTE | 2022-12-29 08:44 | PC.NURSE ---
discharge call back to [facility], doing well, did receive copy of discharge instructions, no questions
--- NOTE | 2023-01-05 14:35 | PC.NURSE ---
on 12-27-22 ivf ns was stopped at 1400.
== END 2022-12-27 15:30 | disposition home health service (06) ==
LOC: CHSED 10:39 → CHS2ND 13:44
PROVIDERS: Nurse Practitioner Acute Care; Admitting Provider Internal Medicine; Emergency Provider Family Medicine; PCP Internal Medicine; Visit Provider Internal Medicine
DX: N39.0 Urinary tract infection, site not specified (principal); N17.9 Acute kidney failure, unspecified; D64.9 Anemia, unspecified; C67.9 Malignant neoplasm of bladder, unspecified; I10 Essential (primary) hypertension; M54.9 Dorsalgia, unspecified; E78.5 Hyperlipidemia, unspecified; M81.0 Age-related osteoporosis without current pathological fracture; F32.A Depression, unspecified; W19.XXXA Unspecified fall, initial encounter; Z87.891 Personal history of nicotine dependence
CPT/HCPCS: 36415; 36430; 72072; 72100; 73090; 73110; 80053; 81001; 82607; 82746; 83540; 83550; 83735; 85014; 85018; 85025; 86850; 86900; 86901; 86920; 87086; 87088; 93005; 96361; 96365; 96366; 96367; 97161; 97165; 99285; A9270; G0378; J0696; J3475; J7030; J7040; J7050; P9016

== ENCOUNTER 2023-01-02 15:16 | Outpatient (NON) | payer OTHER, SELFPAY ==
[2023-01-02 15:26] LABS: Appearance Urine Clear (Clear); Bilirubin Urine Negative (Negative); Blood Urine 3+ (Negative); Color Urine Light Yellow (Yellow); Glucose Urine UA Negative (Negative); Ketones Urine Negative (Negative); Leukocyte Esterase Ur 1+ (Negative); Nitrate Urine Negative (Negative); Protein Urine 1+ (Negative); pH Urine 6.5 (5.0-8.0)
[2023-01-02 15:35] LABS: Add Urine Microscopic? YES; Bacteria Urine 1+ /hpf; RBC Urine 21-50 /hpf (0-2); Renal Epithelial Cells Urine Few /hpf; Squamous Epithelial Cell Urine Few /hpf (Few)
== END 2023-01-02 15:17 | disposition home or self-care (01) ==
LOC: CHSLAB 15:17
PROVIDERS: Visit Provider Internal Medicine
DX: N39.0 Urinary tract infection, site not specified (principal)
CPT/HCPCS: 81001; 87086; 87088

== ENCOUNTER 2023-01-04 10:05 | Outpatient (NON) | payer OTHER, SELFPAY ==
[2023-01-04 10:39] LABS: Basophils Absolute Auto 0.04 K/mm3 (0.00-0.10); Basophils Percent Auto 0.4 % (0.0-1.0); Eosinophils Absolute Auto 0.13 K/mm3 (0.02-0.50); Eosinophils Percent Auto 1.2 % (1.0-6.0); Hemoglobin 8.3 g/dL (11.7-13.8); Immature Granulocyte Absolute 0.07 K/mm3 (0.00-0.00); Immature Granulocyte Percent A 0.6 % (0.0-0.0); Lymphocytes Absolute Auto 1.85 K/mm3 (1.10-4.50); Lymphocytes Percent Auto 16.5 % (18.0-42.0); Mean Corpuscular HGB Conc 31.9 g/dL (32.0-36.0); Mean Corpuscular Volume 90.9 fL (78.0-102.0); Mean Platelet Volume 10.2 fl (9.2-11.8); Monocytes Absolute Auto 1.43 K/mm3 (0.10-0.90); Monocytes Percent Auto 12.8 % (2.0-11.0); Neutrophils Absolute Auto 7.7 K/mm3 (1.7-7.2); Neutrophils Percent Auto 68.5 % (50.0-70.0); Platelet Count Result 306 K/mm3 (150-420); Red Blood Count 2.86 M/mm3 (4.20-5.40); Red Cell Distribution Width 18.2 % (11.6-14.4); White Blood Count 11.2 K/mm3 (4.8-10.8)
[2023-01-04 10:56] LABS: Anion Gap 11 mmol/L (8-16); Blood Urea Nitrogen 23 mg/dL (7-18); Carbon Dioxide 28 mmol/L (21-32); Chloride 100 mmol/L (98-108); Estimated Glomerular Filt Rate 34; Glucose 84 mg/dL (70-99); Osmolality Calculated 290 mOsm/kg (285-295); Potassium 3.8 mmol/L (3.5-5.1); Sodium 139 mmol/L (136-145)
== END 2023-01-04 10:06 | disposition home or self-care (01) ==
LOC: CHSLAB 10:06
PROVIDERS: PCP Internal Medicine; Visit Provider Nurse Practitioner Acute Care
DX: N39.0 Urinary tract infection, site not specified (principal); I10 Essential (primary) hypertension
CPT/HCPCS: 36415; 80048; 85025

== ENCOUNTER 2023-01-09 10:33 | Outpatient (NON) | payer OTHER, SELFPAY ==
[2023-01-09 10:49] LABS: Appearance Urine Clear (Clear); Bilirubin Urine Negative (Negative); Blood Urine 3+ (Negative); Color Urine Light Yellow (Yellow); Glucose Urine UA Negative (Negative); Ketones Urine Negative (Negative); Leukocyte Esterase Ur 2+ (Negative); Nitrate Urine Negative (Negative); Protein Urine 2+ (Negative); Specific Grav Ur 1.015 (1.010-1.020); Urobilinogen Urine 0.2 mg/dL (0.2-1.0)
[2023-01-09 10:58] LABS: Add Urine Microscopic? YES; Bacteria Urine 1+ /hpf; RBC Urine 21-50 /hpf (0-2); Renal Epithelial Cells Urine Few /hpf; Squamous Epithelial Cell Urine Few /hpf (Few)
== END 2023-01-09 10:34 | disposition home or self-care (01) ==
LOC: CHSLAB 10:34
PROVIDERS: Visit Provider Internal Medicine
DX: N39.0 Urinary tract infection, site not specified (principal)
CPT/HCPCS: 81001; 81003; 87086

== ENCOUNTER 2023-01-19 12:31 | Outpatient (NON) | payer OTHER, SELFPAY ==
[2023-01-19 12:45] LABS: Basophils Absolute Auto 0.05 K/mm3 (0.00-0.10); Basophils Percent Auto 0.4 % (0.0-1.0); Eosinophils Absolute Auto 0.06 K/mm3 (0.02-0.50); Eosinophils Percent Auto 0.5 % (1.0-6.0); Hematocrit 26.6 % (35.0-42.0); Hemoglobin 8.2 g/dL (11.7-13.8); Immature Granulocyte Absolute 0.04 K/mm3 (0.00-0.00); Immature Granulocyte Percent A 0.3 % (0.0-0.0); Lymphocytes Absolute Auto 1.41 K/mm3 (1.10-4.50); Lymphocytes Percent Auto 11.9 % (18.0-42.0); Mean Corpuscular HGB Conc 30.8 g/dL (32.0-36.0); Mean Corpuscular Hemoglobin 29.1 pg (27.0-31.0); Mean Corpuscular Volume 94.3 fL (78.0-102.0); Neutrophils Percent Auto 75.9 % (50.0-70.0); Platelet Count Result 199 K/mm3 (150-420); Red Blood Count 2.82 M/mm3 (4.20-5.40); Red Cell Distribution Width 17.4 % (11.6-14.4); White Blood Count 11.8 K/mm3 (4.8-10.8)
[2023-01-19 12:48] LABS: Appearance Urine Slightly Cloudy (Clear); Bilirubin Urine Negative (Negative); Blood Urine 3+ (Negative); Color Urine Light Yellow (Yellow); Glucose Urine UA Negative (Negative); Ketones Urine Negative (Negative); Leukocyte Esterase Ur 3+ (Negative); Nitrate Urine Negative (Negative); Protein Urine 1+ (Negative); Specific Grav Ur 1.015 (1.010-1.020)
[2023-01-19 12:50] LABS: Add Urine Microscopic? YES; Renal Epithelial Cells Urine Few /hpf; Squamous Epithelial Cell Urine Few /hpf (Few); WBC Urine 21-30 /hpf (0-3)
[2023-01-19 12:52] LABS: Bacteria Urine 2+ /hpf
[2023-01-19 13:12] LABS: Anion Gap 7 mmol/L (8-16); Blood Urea Nitrogen 27 mg/dL (7-18); Calcium 10.1 mg/dL (8.5-10.1); Carbon Dioxide 34 mmol/L (21-32); Chloride 98 mmol/L (98-108); Estimated Glomerular Filt Rate 28; Ferritin 377 ng/mL (8-252); Glucose 137 mg/dL (70-99); Iron 26 ug/dL (50-170); Osmolality Calculated 295 mOsm/kg (285-295); Potassium 3.8 mmol/L (3.5-5.1); Sodium 139 mmol/L (136-145)
== END 2023-01-19 12:32 | disposition home or self-care (01) ==
PROVIDERS: Visit Provider Internal Medicine
DX: D64.9 Anemia, unspecified (principal); N39.0 Urinary tract infection, site not specified
CPT/HCPCS: 36415; 80048; 81001; 82728; 83540; 85025; 87086; 87088

== ENCOUNTER 2023-01-25 11:09 | Outpatient (NON) | payer OTHER, SELFPAY ==
[2023-01-25 11:16] LABS: Add Urine Microscopic? YES; Appearance Urine Cloudy (Clear); Bilirubin Urine Negative (Negative); Blood Urine 3+ (Negative); Color Urine Light Yellow (Yellow); Glucose Urine UA Negative (Negative); Ketones Urine Negative (Negative); Leukocyte Esterase Ur 3+ (Negative); Nitrate Urine Negative (Negative); Protein Urine 1+ (Negative); Specific Grav Ur 1.015 (1.010-1.020); Urobilinogen Urine 0.2 mg/dL (0.2-1.0)
[2023-01-25 11:17] LABS: Bacteria Urine 2+ /hpf; Renal Epithelial Cells Urine Few /hpf; Squamous Epithelial Cell Urine Few /hpf (Few); WBC Urine 21-30 /hpf (0-3)
== END 2023-01-25 11:10 | disposition home or self-care (01) ==
LOC: CHSLAB 11:10
PROVIDERS: Visit Provider Internal Medicine
DX: N39.0 Urinary tract infection, site not specified (principal)
CPT/HCPCS: 81001; 87077; 87086; 87088; 87186

== ENCOUNTER 2023-01-30 10:17 | Outpatient (NON) | payer OTHER, SELFPAY ==
[2023-01-30 11:02] LABS: Appearance Urine Cloudy (Clear); Bilirubin Urine Negative (Negative); Blood Urine 3+ (Negative); Color Urine Light Yellow (Yellow); Glucose Urine UA Negative (Negative); Ketones Urine Negative (Negative); Leukocyte Esterase Ur 3+ (Negative); Nitrate Urine Negative (Negative); Protein Urine 1+ (Negative); Specific Grav Ur 1.015 (1.010-1.020)
[2023-01-30 11:07] LABS: Add Urine Microscopic? YES; WBC Urine 16-20 /hpf (0-3)
[2023-01-30 11:08] LABS: Bacteria Urine 1+ /hpf; Renal Epithelial Cells Urine Moderate /hpf; Squamous Epithelial Cell Urine Few /hpf (Few)
== END 2023-01-30 10:18 | disposition home or self-care (01) ==
LOC: CHSLAB 10:20
PROVIDERS: Visit Provider Internal Medicine
DX: N39.0 Urinary tract infection, site not specified (principal)
CPT/HCPCS: 81001; 87086